=== PATIENT | female | born 1950 | race Caucasian/White ===

== ENCOUNTER 2017-07-22 10:47 | Emergency (ER) | payer MEDICARE, OTHER ==
[2017-07-22 11:39] LABS: BASOPHILS % (AUTO) 0.2 %; EOSINOPHILS % (AUTO) 0.4 %; HCT - HEMATOCRIT 39.7 % (37.0-47.0); HGB - HEMOGLOBIN 13.3 g/dL (12.0-16.0); LYMPHOCYTES # (AUTO) 0.4 10^3/uL (1.5-3.5); LYMPHOCYTES % (AUTO) 4.4 %; MEAN CORPUSCULAR HEMOGLOBIN 29.6 pg (27.0-31.0); MEAN CORPUSCULAR HGB CONC 33.4 g/dL (32.0-36.0); MEAN CORPUSCULAR VOLUME 88.5 fL (81.0-99.0); MONOCYTES # (AUTO) 0.3 10^3/uL (0.0-1.0); MONOCYTES % (AUTO) 3.3 %; NEUTROPHILS # (AUTO) 7.5 10^3/uL (1.5-6.6); NEUTROPHILS % (AUTO) 91.7 %; RED BLOOD COUNT 4.49 10^6/uL (4.20-5.40); RED CELL DISTRIBUTION WIDTH 14.1 % (12.0-15.0); UNCORRECTED WHITE BLOOD COUNT 8.1 x10^3/uL; WHITE BLOOD COUNT 8.1 x10^3/uL (4.8-10.8)
[2017-07-22 11:48] LABS: ALBUMIN/GLOBULIN RATIO 1.2 (1.0-2.2); BILIRUBIN,TOTAL 0.9 mg/dL (0.2-1.0); CALCIUM 8.7 mg/dL (8.5-10.3); CREATININE 1.1 mg/dL (0.4-1.0); POTASSIUM 4.2 mmol/L (3.5-5.0); TOTAL PROTEIN 6.9 g/dL (6.7-8.2)
[2017-07-22 12:02] LABS: BILIRUBIN,URINE NEGATIVE (NEGATIVE); PH,URINE 6.5 PH (5.0-7.5)
[2017-07-22 12:04] LABS: UA CHARGE (STRIP ONLY) YES; UR CULTURE IF IND NOT INDICATED
[2017-07-22] MEDS ORDERED: SODIUM CHLORIDE 0.9% 1,000 ML IV ONE ×2 (12:13)
[2017-07-22] MEDS ORDERED: ONDANSETRON 4 MG/2 ML VIAL IVP STA (12:13)
[2017-07-22] MEDS ORDERED: KETOROLAC 60 MG/2 ML VIAL IVP STA (12:17)
--- NOTE | 2017-07-22 12:19 | ED Physician Documentation ---
PD HPI NVD - Stated complaint Stated Complaint: VOMITING/DIARRHEA - Chief complaint Chief Complaint: Abd Pain - History obtained from History obtained from: Patient, Family - History of Present Illness Timing - onset: Last night Timing - duration: Days (1) Timing - details: Gradual onset Pain level max: 5 Pain level now: 5 Associated symptoms: Abdominal pain (crampy). No: Fever, Chest pain, Hematemesis, Melena, Hematochezia, Dizzy, Near syncope / syncope, Loss of appetite Contributing factors: Sick contact (entire family sick with same), Diabetes. No : Recent antibiotics Improved by: Vomiting Worsened by: Eating Recently seen: Not recently seen - Additonal information Additional information: Patient is a 66-year-old diabetic female who started having nausea and vomiting last night accompanied by diarrhea. Entire family has been sick with same. This is improved this morning, but she feels weak and dehydrated. States she also has a mild headache, 4 out of 10. Also has crampy abdominal pain. Review of Systems Ten Systems: 10 systems reviewed and negative Constitutional: denies: Fever, Chills Ears: denies: Ear pain Nose: denies: Rhinorrhea / runny nose, Congestion Throat: denies: Sore throat Cardiac: denies: Chest pain / pressure Respiratory: denies: Cough, Wheezing : denies: Dysuria, Frequency, Hesitancy Skin: denies: Rash Musculoskeletal: denies: Neck pain, Back pain Neurologic: reports: Generalized weakness, Headache. denies: Confused, Altered mental status PD PAST MEDICAL HISTORY - Past Medical History Past Medical History: Yes Cardiovascular: Hypertension, High cholesterol Respiratory: None Neuro: None Endocrine/Autoimmune: Type 2 diabetes, HyPOthyroidism GI: None HEALTH AND SAFETY COORDINATOR: None : None HEENT: None Psych: None Musculoskeletal: None Derm: None - Past Surgical History Past Surgical History: Yes Ortho: Knee replacement, Other HEENT: Cataracts, Detached retina repair Derm: Skin cancer surgery - Present Medications Home Medications: Ambulatory Orders Medication Instructions Recorded Confirmed Atenolol [Tenormin] 50 mg PO DAILY 07/22/17 07/22/17 Atorvastatin Calcium 80 mg PO DAILY 07/22/17 07/22/17 Glipizide 10 mg PO DAILY 07/22/17 07/22/17 Hydrochlorothiazide 12.5 mg PO DAILY 07/22/17 07/22/17 Insulin NPH Hum/Reg Insulin Hm 60 units SUBQ BID 07/22/17 07/22/17 [Novolin 70-30 100 Unit/ml Vial] Levothyroxine [Synthroid] 75 mcg PO QDAC 07/22/17 07/22/17 Ondansetron Odt [Zofran] 4 mg TL Q6H PRN #10 tablet 07/22/17 amLODIPine [Norvasc] 10 mg PO DAILY 07/22/17 07/22/17 - Allergies Allergies/Adverse Reactions: Allergies Allergy/AdvReac Type Severity Reaction Status Date / Time latex Allergy Unknown Verified 07/22/17 10:57 levofloxacin [From Levaquin] Allergy Unknown Verified 07/22/17 10:57 pseudoephedrine Allergy Unknown Verified 07/22/17 10:57 [From Sudafed] - Social History Does the pt smoke?: No Smoking Status: Never smoker Does the pt drink ETOH?: No Does the pt have substance abuse?: No - Immunizations Immunizations are current?: Yes - POLST Patient has POLST: Yes PD ED PE NORMAL - Vitals Vital signs reviewed: Yes - General General: Alert and oriented X 3, No acute distress, Well developed/nourished - HEENT HEENT: PERRL, Ears normal, Pharynx benign, Other (dry lips and tongue) - Neck Neck: Supple, no meningeal sign, No adenopathy - Cardiac Cardiac: RRR, Strong equal pulses - Respiratory Respiratory: No respiratory distress, Clear bilaterally - Abdomen Abdomen: Soft, Non tender, Non distended - Back Back: No CVA TTP - Derm Derm: Warm and dry - Neuro Neuro: Alert and oriented X 3 - Psych Psych: Normal mood, Normal affect Results - Vitals Vitals: Vital Signs - 24 hr 07/22/17 07/22/17 07/22/17 10:54 12:01 13:06 Temperature 37.6 C H 36.6 C 37.3 C Heart Rate 96 94 95 Respiratory 17 16 16 Rate Blood Pressure 133/70 H 128/62 111/59 L O2 Saturation 96 94 92 Oxygen O2 Source Room air - Labs Labs: Laboratory Tests 07/22/17 07/22/17 07/22/17 11:20 11:20 11:45 WBC 8.1 RBC 4.49 Hgb 13.3 Hct 39.7 MCV 88.5 MCH 29.6 MCHC 33.4 RDW 14.1 Plt Count 212 MPV 9.0 Neut # 7.5 H Lymph # 0.4 L [place] # 0.3 Eos # 0.0 Baso # 0.0 Absolute Nucleated RBC 0.00 Nucleated RBC % 0.0 Sodium 136 Potassium 4.2 Chloride 98 L Carbon Dioxide 27 Anion Gap 11.0 BUN 37 H Creatinine 1.1 H Estimated GFR (MDRD) 50 L Glucose 224 H Calcium 8.7 Total Bilirubin 0.9 AST 32 ALT 34 Alkaline Phosphatase 83 Total Protein 6.9 Albumin 3.8 Globulin 3.1 Albumin/Globulin Ratio 1.2 Lipase 18 L Urine Color YELLOW Urine Clarity CLEAR Urine pH 6.5 Ur Specific [place] 1.015 Urine Protein NEGATIVE Urine Glucose (UA) NEGATIVE Urine Ketones NEGATIVE Urine Occult Blood NEGATIVE Urine Nitrite NEGATIVE Urine Bilirubin NEGATIVE Urine Urobilinogen 0.2 (NORMAL) Ur Leukocyte Esterase NEGATIVE Ur Microscopic Review NOT INDICATED Urine Culture Comments NOT INDICATED PD MEDICAL DECISION MAKING - ED course Complexity details: reviewed results, re-evaluated patient, considered differential, d/w patient, d/w family ED course: Patient is a 66-year-old female who presents to the emergency department with what appears to be a viral gastroenteritis. This appears to be improving since her symptoms started last night. Feels better after Zofran and IV fluids. Tolerating p.o. without difficulty. Will continue supportive care and follow- up with her doctor. Abdomen is soft, nontender nondistended on serial exam. Headache resolved. Patient and family counseled regarding signs and symptoms for which I believe and urgent re-evaluation would be necessary. Patient with good understanding of and agreement to plan and is comfortable going home at this time This document was made in part using voice recognition software. While efforts are made to proofread this document, sound alike and grammatical errors may occur. Departure - Departure Disposition: 01 Home, Self Care Clinical Impression: Viral gastroenteritis Condition: Good Instructions: ED Gastroenteritis Viral Follow-Up: Provider,Other [Primary Care Provider] - As Needed Prescriptions: Ondansetron Odt [Zofran] 4 mg TL Q6H PRN #10 tablet PRN Reason: Nausea / Vomiting Comments: Drink plenty of fluids and rest. Return if you worsen. This should improve over the next day or two.
[2017-07-22 13:06] VITALS: BP 111/59
== END 2017-07-22 13:20 | disposition home or self-care (01) ==
LOC: ED 10:47
DX: A08.4 Viral intestinal infection, unspecified (principal); I10 Essential (primary) hypertension; E78.00 Pure hypercholesterolemia, unspecified; E03.9 Hypothyroidism, unspecified; E11.8 Type 2 diabetes mellitus with unspecified complications; Z79.4 Long term (current) use of insulin
CPT/HCPCS: 36415; 80053; 81001; 81003; 83690; 85025; 87086; 96361; 96374; 99283; 99284